=== PATIENT | male | born 1935 | race Caucasian/White ===

== ENCOUNTER → 2016-10-14 | Outpatient (CLI) | payer MEDICARE, BC | LOC: LAB.O 11:27 | PROVIDERS: ATTEND Family Medicine | DX: D50.9 Iron deficiency anemia, unspecified (principal); E53.8 Deficiency of other specified B group vitamins; I10 Essential (primary) hypertension; R97.20 Elevated prostate specific antigen [PSA] ==

== ENCOUNTER → 2016-11-24 | Outpatient (CLI) | payer MEDICARE, BC | END | disposition home or self-care (01) | LOC: GMAB 08:07 | PROVIDERS: ATTEND Family Medicine | DX: E53.8 Deficiency of other specified B group vitamins (principal); D50.9 Iron deficiency anemia, unspecified; R97.20 Elevated prostate specific antigen [PSA] ==

== ENCOUNTER → 2016-12-01 | Outpatient (CLI) | payer MEDICARE, BC ==
--- NOTE | 2016-12-01 10:32 | RAD ---
EXAM DESCRIPTION: Knee,Left Complete CLINICAL HISTORY: 81 years Male, KNEE PAIN COMPARISON: September 18, 2016 FINDINGS: 3 views of the left knee show no acute fracture or malalignment. Moderate to moderately advanced tricompartmental degenerative changes are noted including joint space narrowing and osteophyte formation, slightly worse in the patellofemoral compartment. There is no left knee joint effusion. Vascular calcifications are noted. IMPRESSION: Moderate to moderately advanced tricompartmental degenerative changes, worse in the patellofemoral compartment. Vascular calcifications. Electronically signed by: Krishan Shaikh MD 12/01/2016 10:32 AM CLAIMS TECHNICIAN
== END | disposition home or self-care (01) ==
LOC: RAD 09:13
PROVIDERS: ATTEND Orthopaedic Surgery
DX: M25.562 Pain in left knee (principal)

== ENCOUNTER 2016-12-02 06:15 | Day surgery (SDC) | payer MEDICARE, BC ==
--- NOTE | 2016-12-01 11:35 | HP ---
CHIEF COMPLAINT: Left knee pain. HISTORY OF PRESENT ILLNESS: Mr. Wolff is an 81-year-old male that we have seen in the past for left knee pain. He has had an injection before in the past and he has done pretty well. Unfortunately, he has had some mechanical symptoms, but those have not prevented him from doing his activities. Today, he has had the acute onset of severe pain without any new trauma. He has had no radiation of that pain and no neurologic symptoms. He has had pain that is requiring him to walk on crutches. He is having some popping and says it feels like something is floating around in there. PAST SURGICAL HISTORY: 1. Lumbar fusion. MEDICATIONS: None. ALLERGIES: MORPHINE. CODE STATUS: Full code. IMMUNIZATIONS: Up to date. SOCIAL HISTORY: The patient does not drink, smoke or use any illicit drugs. FAMILY HISTORY: None pertinent to today's complaint. REVIEW OF SYSTEMS: Negative except as indicated in the History of Present Illness. PHYSICAL EXAMINATION: VITAL SIGNS: Blood pressure 160/97. Pulse 101. Height 5'10. Weight 200. MENTAL STATUS: The patient is awake, alert, and is able to give a good history and participate in the physical. The patient is oriented to person, place and time. SKIN: Normal tone and turgor. MUSCULOSKELETAL: He is extremely tender diffusely about the knee and lacks about 10 degrees of extension today. He has intact sensation throughout. It is warm and well perfused. He maintains 5/5 strength. He has palpable crepitus throughout and he has no varus/valgus or anterior/posterior laxity. He has an obvious effusion today. IMAGING: X-rays show arthritis, but no acute bony abnormality. ASSESSMENT: 1. Knee pain with limitation of motion. PLAN: The plan at this point is for knee arthroscopy. He has had such an acute onset of pain and is starting to develop mechanical symptoms. I have talked to him about the fact that he may continue to have baseline pain consistent with his arthritis, but at the same time, given his current status, it certainly may help with this acute situation. We have discussed the risks, benefits, and alternatives to that and the patient has given informed consent. #[id number] [facility]
--- NOTE | 2016-12-01 11:38 | RAD ---
EXAM DESCRIPTION: Chest,2 Views CLINICAL HISTORY: 81 years Male, Pre-op COMPARISON: 07 March 2013 TECHNIQUE: PA/lateral] FINDINGS: There is no cardiac or pulmonary abnormality. The lungs are clear. There is no effusion. IMPRESSION: 1. Normal two-view chest. Electronically signed by: Edi Powers MD 12/01/2016 11:38 AM CONSTRUCTION TECHNOLOGY INSTRUCTOR
[~2016-12-02 06:15] MED LIST: LACTATED RINGERS 1,000 ML ONE; SODIUM CHL 0.9% 100ML MINI-BAG 100 ML IVPB ONE; ceFAZolin SODIUM 1 GM VIAL ONE; fentaNYL CITRATE INJ 50 MCG/ML AMP ONE
[2016-12-02] MEDS ORDERED: BUPIVACAINE 0.25% W/EPI 50 ML VIAL INJ ONE (06:43)
[2016-12-02] MEDS ORDERED: ceFAZolin SODIUM 1 GM VIAL ONE ×2 (06:44→07:46)
[2016-12-02] MEDS ORDERED: BUPIVACAINE 0.5% W/EPI 30 ML VIAL INJ ONE (07:28)
[2016-12-02 08:16] VITALS: TEMP 97.7
[2016-12-02] MEDS ORDERED: HYDROcodone 5MG/APAP 325MG 1 EA TAB ONE (08:41)
[2016-12-02 09:31] VITALS: BP 145/84; O2SAT 97
[2016-12-02] MEDS ORDERED: METOCLOPRAMIDE HCL INJ 10 MG/2 ML VIAL IV ONE (11:22)
[2016-12-02] MEDS ORDERED: PROPOFOL 200 MG/20 ML VIAL IV ONE (11:23)
--- NOTE | 2016-12-03 08:37 | OP ---
DATE OF PROCEDURE: 12/02/16 PREOPERATIVE DIAGNOSIS: 1. Knee pain on the left. POSTOPERATIVE DIAGNOSIS: 1. Advanced osteoarthritis. 2. Approximately 2 cm by 1 cm loose body in the lateral compartment. 3. Approximately 1 cm by 0.5 cm loose body in the lateral gutter. PROCEDURE: SURGEON: Chalino Marinelli MD. FITNESS ASSISTANT: Chris Rangel CST, SA-C. ANESTHESIA: General. COMPLICATIONS: None. INDICATION: Mr. Wolff has a long history of knee pain. He has had injections in the past. Unfortunately, he has been unable to get relief and then had acute onset of worsening pain. He presented to the clinic with mechanical symptoms. After discussing the risks, benefits and alternatives to operative therapy, the patient has given informed consent for the above procedure. PROCEDURE: The patient was brought to the Operating Room and placed in supine position. General anesthesia was induced and the patient's leg was sterilely prepped and draped. Following prepping and draping, standard anteromedial and anterolateral portals were established. Diagnostic arthroscopy was carried out with the following findings: 1. Degenerative fraying of the medial meniscus. 2. Advanced arthrosis of the medial compartment. 3. Normal anterior cruciate ligament. 4. Normal posterior cruciate ligament. 5. Approximately 2 by 1 cm loose body in the lateral compartment. 6. Advanced arthrosis of the lateral compartment. 7. Approximately 1 by 0.5 cm loose body in the lateral gutter. 8. Normal suprapatellar pouch. 9. Advanced arthrosis of the patellofemoral joint. 10. Normal medial gutter. Following diagnostic arthroscopy, an accessory superolateral portal was established and the loose body in the lateral gutter was removed. Following that, a grasper was used to remove the loose body in the lateral compartment. Once all the loose bodies were removed, the knee was thoroughly irrigated and care was taken to ensure no further objects remained in the knee. The wound was very thoroughly drained and the wounds were closed with Nylon suture. Sterile dressings were placed. The patient was awoken from anesthesia and taken to Recovery. POSTOPERATIVE INSTRUCTIONS: The patient will be partial weightbearing and will followup with us in two days. #[id number] [facility]
== END 2016-12-02 09:20 | disposition home or self-care (01) ==
LOC: AMB 06:15
PROVIDERS: ATTEND Orthopaedic Surgery
DX: M17.12 Unilateral primary osteoarthritis, left knee (principal); M23.42 Loose body in knee, left knee; Z88.8 Allergy status to other drugs, medicaments and biological substances
CPT/HCPCS: 01400; 29874; 36415; 71020; 80048; 81001; 85025; 87070; 88305; 88311; 93005; J0690; J2765; J3010; J3490; J7050; J7120

== ENCOUNTER 2016-12-28 01:57 | Inpatient (IN) | payer MEDICARE, BC ==
[2016-12-28] MEDS ORDERED: NITROGLYCERIN 0.4 MG 25 EA TAB SL ONE (02:13)
[2016-12-28] MEDS: SODIUM CHLORIDE 0.9% (FLUSH) 10 ML SYG IV PRN ×4 (02:27→21:33)
[2016-12-28] MEDS ORDERED: LIDOCAINE VIS-MYLANTA 30 ML UD PO ONE (02:29)
--- NOTE | 2016-12-28 03:03 | RAD ---
EXAM: Single view chest. INDICATION: Chest pain. COMPARISON: Chest x-ray: 12/01/2016. FINDINGS: Cardiac silhouette: At the upper limit of normal in size Madeline: Unremarkable. Lobar consolidation: None. Pleural effusion: None. Pneumothorax: None. Other: None. Bones: Unremarkable. Other: None. IMPRESSION: 1. No acute cardiopulmonary process. Electronically signed by: Mundo Mccall MD 12/28/2016 3:02 AM CDT
--- NOTE | 2016-12-28 03:07 | ED.PDOC ---
History of Present Illness - General Chief Complaint: Chest Pain/IL Stated Complaint: chest pain, nausea Time Seen by Provider: 12/28/16 02:13 Source: patient, RN notes reviewed, Vital Signs reviewed Exam Limitations: no limitations - History of Present Illness Initial Comments: Patient is an 81 y/o male who was brought in by his family complaining of epigastric pain. He has had this pain since 1600 yesterday. He has thrown up twice, but does not have any nausea. He denies any shortness of breath, chest pain, dizziness or diaphoresis. He has no cardiac history. Timing/Duration: other - Since 1599 yesterday afternoon Severity: mild, moderate Improving Factors: nothing Worsening Factors: nothing Associated Symptoms: cough, nausea/vomiting Allergies/Adverse Reactions: Allergies Doxycycline Allergy (Verified 12/28/16 02:35) Rash Morphine Allergy (Verified 12/28/16 02:35) Rash Home Medications: Ambulatory Orders Aspirin (Buffered) 325 mg [Bufferin 325 mg] 1 ea PO BEDTIME 06/15/16 Meloxicam 15 mg PO DAILY 06/15/16 amLODIPine BESYLATE [Norvasc] 10 mg PO DAILY 06/15/16 Review of Systems - Review of Systems Constitutional: States: no symptoms reported EENTM: States: no symptoms reported Respiratory: States: no symptoms reported Cardiology: States: no symptoms reported Gastrointestinal/Abdominal: States: abdominal pain, vomiting Genitourinary: States: no symptoms reported Musculoskeletal: States: no symptoms reported Skin: States: no symptoms reported Neurological: States: no symptoms reported Endocrine: States: no symptoms reported Hematologic/Lymphatic: States: no symptoms reported All other Systems: Reviewed and Negative Past Medical History (General) - Patient Medical History Hx Stroke: No Hx Asthma: No Hx of COPD: No Hx Cardiac Disorders: Yes Hx Congestive Heart Failure: No Hx Hypertension: Yes Hx Diabetes: No Hx Renal Disease: No - Hx kidney stones Hx Cancer: No Hx MRSA: No Surgical History: tonsillectomy, other - Vaccination History Hx Tetanus, Diphtheria Vaccination: Yes Hx Influenza Vaccination: Yes Hx Pneumococcal Vaccination: Yes - Social History Hx Tobacco Use: Yes Hx Alcohol Use: No Family Medical History - Family History Father Living Status: Cause of : lung CA Physical Exam - Physical Exam General Appearance: Alert, Comfortable, No apparent distress Ears, Nose, Throat: hearing grossly normal, normal ENT inspection Respiratory: lungs clear, normal breath sounds, no respiratory distress, no accessory muscle use Cardiovascular/Chest: normal peripheral pulses, regular rate, rhythm, no edema, no murmur Gastrointestinal/Abdominal: non tender, soft, no organomegaly, no pulsatile mass Extremity: normal inspection Neurologic: alert, normal mood/affect, oriented x 3 Progress - Results/Orders Results/Orders: 12/28/16 12/28/16 12/28/16 02:19 02:20 03:00 Temperature 98.7 F Pulse Rate Pulse Rate [ 86 88 left] Respiratory 18 Rate Blood Pressure 155/89 [left] O2 Sat by Pulse 98 95 Oximetry 12/28/16 03:06 Temperature Pulse Rate 80 Pulse Rate [ 85 left] Respiratory 18 Rate Blood Pressure 147/80 [left] O2 Sat by Pulse 96 Oximetry 12/28/16 02:13 IV Care:Saline Lock per Protoc QSHIFT Telemetry .ONCE Sodium Chloride 0.9% (Flush) [Saline Flush Syringe] 10 ml IV PRN PRN EKG Stat Pulse Ox Stat 12/28/16 02:14 Pulse Oximetry Assessment DAILY 12/28/16 03:20 Ondansetron Inj [Zofran Inj] 4 mg IV ONCE ONE Laboratory Results WBC 7.7 K/mm3 (4.8-10.8) 12/28/16 02:10 RBC 3.79 M/mm3 (4.70-6.10) L 12/28/16 02:10 Hgb 12.2 gm/dL (14.0-18.0) L 12/28/16 02:10 Hct 35.6 % (42.0-52.0) L 12/28/16 02:10 MCV 94.1 fl (80.0-94.0) H 12/28/16 02:10 MCH 32.1 pg (27.0-31.0) H 12/28/16 02:10 MCHC 34.3 g/dL (33.0-37.0) 12/28/16 02:10 RDW 15.0 % (11.5-14.5) H 12/28/16 02:10 Plt Count 139 K/mm3 (130-400) 12/28/16 02:10 MPV 8.6 fl (7.40-10.4) 12/28/16 02:10 Absolute Neuts (auto) 5.10 K/uL (1.8-6.8) 12/28/16 02:10 Absolute Lymphs (auto) 1.60 K/uL (1.0-3.4) 12/28/16 02:10 Absolute Monos (auto) 1.00 K/uL (0.2-0.8) H 12/28/16 02:10 Absolute Eos (auto) 0.10 K/uL (0.0-0.4) 12/28/16 02:10 Absolute Basos (auto) 0.00 K/uL (0.0-0.1) 12/28/16 02:10 Neutrophils % 65.2 % (42.0-78.0) 12/28/16 02:10 Lymphocytes % 20.4 % (20.0-50.0) 12/28/16 02:10 Monocytes % 13.3 % (2.0-9.0) H 12/28/16 02:10 Eosinophils % 0.7 % (1.0-5.0) L 12/28/16 02:10 Basophils % 0.4 % (0.0-2.0) 12/28/16 02:10 PT 12.5 SECONDS (9.4-12.5) 12/28/16 02:10 INR 1.110 12/28/16 02:10 PTT (SP) 29.9 SECONDS (25.1-36.5) 12/28/16 02:10 D-Dimer, Quantitative 399 ng/mL (0-230) H* 12/28/16 02:10 Sodium 135 mmol/L (135-145) 12/28/16 02:10 Potassium 3.6 mmol/L (3.6-5.0) 12/28/16 02:10 Chloride 103 mmol/L (101-111) 12/28/16 02:10 Carbon Dioxide 24 mmol/L (21-31) 12/28/16 02:10 Anion Gap 11.6 (12-18) L 12/28/16 02:10 BUN 12 mg/dL (7-18) 12/28/16 02:10 Creatinine 0.76 mg/dL (0.6-1.3) 12/28/16 02:10 BUN/Creatinine Ratio 15.8 (10-20) 12/28/16 02:10 Random Glucose 144 mg/dL (70-105) H 12/28/16 02:10 Serum Osmolality 272.4 mOsm/L (275-295) L 12/28/16 02:10 Calcium 9.0 mg/dL (8.4-10.2) 12/28/16 02:10 Magnesium 2.0 mg/dL (1.8-2.5) 12/28/16 02:10 Total Bilirubin 1.6 mg/dL (0.2-1.0) H 12/28/16 02:10 Direct Bilirubin 0.2 mg/dL (0-0.2) 12/28/16 02:10 Indirect Bilirubin 1.4 mg/dL (0.2-0.8) H 12/28/16 02:10 AST 20 IU/L (10-42) 12/28/16 02:10 ALT 11 IU/L (10-60) 12/28/16 02:10 Alkaline Phosphatase 73 IU/L (42-121) 12/28/16 02:10 Creatine Kinase 89 IU/L (38-174) 12/28/16 02:10 CK-MB (CK-2) 1.6 ng/mL (0.0-4.4) 12/28/16 02:10 CK-MB (CK-2) % Not Reportable 12/28/16 02:10 Troponin I < 0.02 ng/mL (0.01-0.05) 12/28/16 02:10 B-Natriuretic Peptide 59.0 pg/ml (0-100) 12/28/16 02:10 Serum Total Protein 8.3 gm/dL (6.4-8.2) H 12/28/16 02:10 Albumin 4.1 g/dl (3.2-5.5) 12/28/16 02:10 - EKG/XRAY/CT EKG: Sinus - 87 bpm, no ST T wave changes, Changed from - 12/02/2016 - PAC on this EKG Comments: PAC, NML axis, NML intervals - Sinus rhythm with PAC XRAY: chest Xray Comments: No acute process. Departure - Departure Clinical Impression: Epigastric abdominal pain Vomiting Qualifiers: Vomiting type: unspecified Vomiting Intractability: unspecified Nausea presence : without nausea Qualifier Code: (R11.11) Vomiting without nausea Time of Disposition: 03:26 Disposition: Admit Patient Home Medications: Ambulatory Orders Aspirin (Buffered) 325 mg [Bufferin 325 mg] 1 ea PO BEDTIME 06/15/16 Meloxicam 15 mg PO DAILY 06/15/16 amLODIPine BESYLATE [Norvasc] 10 mg PO DAILY 06/15/16 Decision To Admit - Decistion To Admit Decision to Admit Reason: Medical Nature Decision to Admit Date: 12/28/16 Decision to Admit Time: 15:00
[2016-12-28] MEDS ORDERED: ONDANSETRON INJ 4 MG/2 ML VIAL IV ONE ×2 (03:20→05:43)
--- NOTE | 2016-12-28 03:26 | HP ---
SUPERVISING PHYSICIAN: RAHUL BEJARANO MD CHIEF COMPLAINT: Nausea, epigastric pain. HISTORY OF PRESENT ILLNESS: Mr. Wolff is an 81 year-old male patient who presented to the Emergency Department on the early childhood specialist of admission, 12/28/16 complaining of epigastric pain. He noted the pain initially started around 4 o'clock the previous day and he had thrown up twice but denies he had any significant nausea. He denied any chest pain, dizziness or diaphoresis and has no significant cardiac history. Laboratory studies showed a normal white count of 7.7 with differential showing to be within normal limits. His chemistries showed normal electrolytes with potassium of 3.6 but liver functions showed an elevated bilirubin of 1.6 with elevated indirect bilirubin of 1.4. Cardiac enzymes showed to be less than 0.02 initially and amylase and lipase were within normal limits. He was given Zofran and fluids in the Emergency Department with minimal improvement. CT of the abdomen was not obtainable at time of admission due to the fact that the weather had disrupted radiographic service for the CT scanner. Given the patient was having some epigastric pain and there was concern for possible cardiac origin as well as unknown whether or not the bilirubin was related to possible cholelithiasis and cholecystitis. The patient is going to be placed in observation to rule out acute myocardial event. Once CT scanner is available, we will further pursue CT of the abdomen to further rule out any gallbladder pathology. He was admitted in stable condition. PAST MEDICAL HISTORY: 1. History of renal stones. 2. Hypertension. PAST SURGICAL HISTORY: 1. Lower back surgery. 2. Tonsillectomy. 3. Renal lithotripsy. 4. Recent left knee arthroscopy by Dr. Marinelli. CURRENT MEDICATIONS: 1. Amlodipine 10 mg daily. 2. Miralax 17 grams daily. 3. Meloxicam 15 mg daily. 4. Buffered aspirin 325 mg 1 at bedtime. ALLERGIES: DOXYCYCLINE AND MORPHINE. FAMILY HISTORY: Father from lung cancer. SOCIAL HISTORY: The patient is retired, lives in [place], is . He has a remote history of smoking but quit in 1966 and he denies any alcohol or illicit drug use. LABORATORY: CBC on admission showed a white count of 7.7, hemoglobin 12.2, hematocrit 35.6, platelet count 139,000, differential showed to be without a lift shift. Coagulation studies showed normal PT/PTT, only slightly elevated D dimer of 399. Chemistries initially showed normal electrolytes with potassium of 3.6, BUN 12, creatinine 0.76. Glucose initially was 144. Magnesium and calcium were both normal. Liver functions showed elevated total bilirubin of 1.6 with elevated indirect bilirubin of 1.4. His amylase and lipose were both within normal limits. Initial cardiac enzymes on admission showed normal CPK of 89 with troponin less than 0.02. Urinalysis showed only a trace of blood on dipstick, otherwise within normal limits,. Initial EKG in the Emergency Department showed normal sinus rhythm without ST changes noted. RADIOLOGY: Initial radiographic studies in the Emergency Department consisted only of chest x-ray and per radiology interpretation showed no acute cardiopulmonary processes. Once the patient was admitted to the medical/ surgical floor. CT of the abdomen is pending. Abdomen series after admission per radiology interpretation showed just the presence of a few punctate radiographic densities within the outline of the left kidney. The right kidney, otherwise there was no mention of small or large bowel gas obstruction ileus or wall thickening. REVIEW OF SYSTEMS: CONSTITUTIONAL: Denies any fevers, fatigue, or unintentional weight loss. HEENT: Denies nasal congestion, sore throat, ear pain. RESPIRATORY: Denies shortness of breath, cough or wheezing. CARDIOVASCULAR: As per history of present illness, positive for epigastric pain. Denies any harley chest pains, syncopal episodes, palpitations. GASTROINTESTINAL: As noted in history of present illness, positive for some abdominal pain, mainly epigastric with some vomiting. GENITOURINARY: Denies dysuria, increased frequency or hematuria NEUROLOGIC: Denies syncopal episodes, vision changes, or neurologic deficits. PHYSICAL EXAMINATION: VITAL SIGNS: Temperature 98.4. Pulse 83. Blood pressure 150/90. Respirations 18. O2 saturation 97% on room air. Admission weight 87.9 kg. GENERAL: The patient appears to be in some mild distress secondary to pain and nausea, vomiting with some active emesis. He is alert and oriented times three. HEENT: Tympanic membranes clear bilaterally. Oropharynx is pink. Mucous membranes slightly dry. There are no lesions. NECK: No jugular venous distention noted. CHEST: Lungs clear to auscultation bilaterally without any rhonchi, wheezes, or rales. CARDIOVASCULAR: Regular rate and rhythm without any appreciable murmurs, gallops, or rubs. ABDOMEN: Positive bowel sounds. No rebound tenderness. There is some tenderness on deep palpation to the right upper quadrant. Otherwise, abdomen is without any significant tenderness. There is no notable tenderness overlying the epigastric region. EXTREMITIES: There is no cyanosis, clubbing or edema. NEUROLOGIC: The patient is alert and oriented times three. LABORATORY: White count on admission was 7.7, hemoglobin 12.2, hematocrit 35.6 , platelet count 139,000, differential without left shift. Coagulation studies showed normal PT, PT-T with INR slightly elevated at 399. Chemistries showed normal electrolytes with potassium 3.6, BUN 12, creatinine 0.6, glucose 144. Total bilirubin slightly elevated at 1.6 with total indirect bilirubin 1.4. All other liver functions within normal limits. Troponin on admission initially was less than 0.02 with normal CPK at 89. Amylase and lipase were both normal. Urinalysis was within normal limits except for trace of blood on dipstick. H. pylori is pending. RADIOLOGY: Initial chest x-ray in the Emergency Department per radiology interpretation showed no acute cardiopulmonary process. On admission, abdominal x-ray and abdomen and pelvis with contrast CT were pending. ASSESSMENT: 1. Epigastric pain, acute onset, currently unknown etiology, possibly related to gallstones versus cholelithiasis with patient having an elevated total bilirubin. with CT of the abdomen and pelvis with contrast pending at time of admission. 2. Nausea and vomiting secondary to possible cholelithiasis, cholecystitis versus chest pain most likely of cardiac origin. 3. History of hypertension. 4. History of renal stones. PLAN: The patient will be placed in observation this morning to continue with cardiac enzymes x 2 every 6 hours apart with repeated EKG to further rule out any acute myocardial event. Once CT scanner is available, he will have a CT of the abdomen with contrast with a concern that the patient may have a cholelithiasis/cholecystitis. Given the patient's initial presentation and nausea and vomiting, we will await findings of the CT results and plan to consult Dr. Fontenot according to those results. He will be started on pain medication initially with Toradol and since he is allergic morphine, utilize Dilaudid as well as Zofran and Phenergan for pain and nausea control. We will repeat his cardiac enzymes at [address] patient on telemetry for close cardiac monitoring and start him on some IV fluids with D5 and half normal saline with 20 of potassium at 100 an hour. Will anticipate length of stay to be 1 to 2 days pending findings of the abdominal CT scan and need for surgical consultation. Until then, we will continue to monitor the patient closely and treat appropriately. #[id number] [facility]
[2016-12-28] MEDS ORDERED: METOCLOPRAMIDE HCL INJ 10 MG/2 ML VIAL IV ONE (04:23)
[2016-12-28] MEDS ORDERED: PANTOPRAZOLE SODIUM IV 40 MG VIAL IV SCH (04:30)
[2016-12-28] MEDS ORDERED: ONDANSETRON INJ 4 MG/2 ML VIAL IV PRN (04:31)
[2016-12-28] MEDS ORDERED: PROMETHAZINE HCL IVPB ONE (04:42)
[2016-12-28] MEDS ORDERED: SODIUM CHLORIDE 0.9% IVPB ONE (04:42)
[2016-12-28] MEDS: KCL 20MEQ/0.45% NS 1,000 ML IVS PRN ×2 (04:57→17:32)
[2016-12-28] MEDS ORDERED: IV SET AND CAP CHANGE INJ INJ SCH (05:00)
[2016-12-28] MEDS ORDERED: diphenhydrAMINE HCL 50 MG/ML VIAL IV ONE (05:44)
[2016-12-28] MEDS ORDERED: KETOROLAC TROMETHAMINE INJ 30 MG/ML VIAL IV ONE (05:48)
--- NOTE | 2016-12-28 08:02 | RAD ---
PROCEDURE: Abdomen Flat Upright Clinical History: Epigastric pain N/V Indication: Same as above Comparison: 06/15/2016 Technique: 3.0 views of the abdomen and pelvis were done. Findings: There is no gross evidence of free air in the abdomen or the pelvis . The small and large bowel gas pattern does not show any evidence of obstruction, ileus or bowel wall thickening. There is presence of few punctate radiopaque densities in the outline of the left kidney and right kidney and may represent underlying bilateral renal calculi The visualized lung bases are unremarkable . There is no significant constipation. Impression: There is presence of few punctate radiopaque densities in the outline of the left kidney and right kidney and may represent underlying bilateral renal calculi Location of Interpretation: [id number] Electronically signed by: Bryan Adams MD 12/28/2016 8:02 AM CDT
[2016-12-28] MEDS ORDERED: PROMETHAZINE SUPP 25 MG SUP PR ONE (08:13)
[2016-12-28] MEDS: CALCIUM CARBONATE (ANTACID) 500 MG CHEWABLE TAB PO PRN ×2 (09:03→15:53)
[2016-12-28] MEDS: SODIUM CHLORIDE 0.9% (FLUSH) 10 ML SYG IV SCH ×2 (09:03→21:35)
--- NOTE | 2016-12-28 10:14 | CT ---
PROCEDURE: Abdomen/Pelvis w/Contrast HISTORY: Epigastric pain elevated TBIL Indication: Same as above Comparison: 06/26/2016 . Technique: CT of the abdomen and pelvis was done with intravenous contrast. Images were obtained from the lung base to the level of the pubic symphysis in axial plane, followed by orthogonal sagittal and coronal reconstruction. Oral contrast was not given for the study. The patient was injected with contrast intravenously, without any documented immediate adverse reactions. This exam was performed according to our departmental dose-optimization program, which includes automated exposure control, adjustment of the mA and/or KV according to the patient's size and/or use of iterative reconstruction technique. FINDINGS: Images through the lung bases do not show any focal infiltrates or pleural effusions. There is presence of a small hiatal hernia. The gallbladder is moderately fluid distended with pericholecystic fat plane stranding suspicious for acute cholecystitis. There is presence of multiple tiny intraluminal gallstones. The liver, pancreas, spleen and the bilateral adrenal glands appear unremarkable. The bilateral kidneys enhance with contrast in a normal fashion. The patient has known tiny nonobstructive bilateral renal calculi, which are currently obscured by presence of radiographic contrast in the kidneys The urinary bladder is unremarkable. The prostate is moderately enlarged . The bilateral ureters and the bilateral periureteral soft tissues and fat planes are unremarkable. The small bowel appears unremarkable, without any evidence of small bowel obstruction or bowel wall thickening. There is no CT evidence of acute appendicitis, pericecal inflammatory change or ileocecal mesenteric adenitis. The ileocecal junction appears unremarkable. There is no CT evidence of acute colonic diverticulitis or colitis or large bowel obstruction. There is large bowel diverticulosis The splenic and portal veins are of normal caliber, without any filling defects. There is no pathological lymphadenopathy in the retroperitoneum or in the pelvic region. There is no evidence of free fluid or free air in the abdomen or the pelvic region. There is no clinically significant abdominal aortic aneurysm. There is a small fat-containing periumbilical ventral hernia defect The visualized lumbar spine again shows multilevel degenerative change, most pronounced at L4/L5 level The paravertebral soft tissues are unremarkable. The remainder of the pelvic structures are unremarkable. IMPRESSION: The gallbladder is moderately fluid distended with pericholecystic fat plane stranding suspicious for acute cholecystitis. There is presence of multiple tiny intraluminal gallstones.. The patient has known tiny nonobstructive bilateral renal calculi, which are currently obscured by presence of radiographic contrast in the kidneys. Large bowel diverticulosis without CT evidence of acute diverticulitis. Enlarged prostate Location of Interpretation: Teleradiology Electronically signed by: Bryan Adams MD 12/28/2016 10:14 AM CDT
[2016-12-28] MEDS ORDERED: CHLORPROMAZINE 50 MG PR PRN (11:28)
[2016-12-28] MEDS ORDERED: HYDROmorphone HCL INJ 2 MG/ML VIAL ONE (11:49)
[2016-12-28] MEDS: levoFLOXacin 750MG IV 750 MG in PREMIX BAG 1 BAG IVPB SCH (11:55)
[2016-12-28] MEDS: HYDROmorphone HCL INJ 2 MG/ML VIAL IV PRN ×4 (11:56→21:33)
--- NOTE | 2016-12-28 13:59 | CONS ---
DATE OF PROCEDURE: 12/28/16 REFERRING PHYSICIAN: Hospitalist group HISTORY OF PRESENT ILLNESS: The patient is an 81 year-old male who was admitted through the Emergency Room with what was said to be chest pain after eating a tuna salad. The workup was negative for cardiovascular process and a CT scan was obtained which shows cholelithiasis with inflammatory changes. The patient had thrown up twice prior to admission but did not complain of nausea at the time. He specifically denies previous episodes of like illness or problems with fatty food. He also denies a history of hepatitis or jaundice. He denies shortness of breath, chest pain and diaphoresis. PAST MEDICAL HISTORY: 1. Kidney stones. 2. Hypertension. PAST SURGICAL HISTORY: 1. Tonsillectomy as a child. 2. Knee scope recently. CURRENT MEDICATIONS: 1. Aspirin 325 mg daily which is given for heart health. 2. Amlodipine 10 mg daily. 3. Meloxicam 15 mg daily. ALLERGIES: DOXYCYCLINE AND MORPHINE. FAMILY HISTORY: Significant for lung cancer in his father who was likely a smoker. SOCIAL HISTORY: The patient is . Lives at home with his . He quit tobacco 40 plus years ago and used it only for a short time. He never used alcohol. 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 REVIEW OF SYSTEMS: Noncontributory, except as in the History of Present Illness and the past medical history. PHYSICAL EXAMINATION: VITAL SIGNS: Afebrile, respiratory rate 20, blood pressure is slightly elevated at 161/83, pulse 90. GENERAL: Awake, alert and in significant distress. HEENT: Sclera are nonicteric. Mucous membranes are moist. NECK: Without adenopathy. CHEST: Equal breath sounds bilaterally. HEART: Regular rate and rhythm. ABDOMEN: Soft, tender in the right upper quadrant without mass or guarding. RECTAL: Examination is deferred. EXTREMITIES: Without clubbing, cyanosis or edema. LABORATORY: White blood cell count of 7.7, hemoglobin 12.2, platelet count 139, 000, 65% neutrophils. Total bilirubin is 1.6. AST, ALT and alkaline phosphatase are within normal limits. CK, CK-MB and troponin are all within normal limits. Amylase was within normal limits. Lipase was mildly elevated at 66. He does have a positive H. pylori IgG. CT scan of the abdomen revealed inflammatory process around the gallbladder with small stones, normal duct. There is diverticulosis without signs of diverticulitis or appendicitis. There is a small periumbilical hernia. IMPRESSION: 1. Abdominal pain and nausea. 2. Elevated bilirubin. 3. Cholelithiasis. 4. Likely biliary colic with cholelithiasis or acute cholecystitis with cholelithiasis. 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 5. Known kidney stones. PLAN: The risks, benefits, and alternatives of laparoscopic cholecystectomy were discussed with the patient in the presence of his son and daughter. All questions were answered. The plan will be to begin antibiotics. Use significant analgesia to make him comfortable and likely proceed with cholecystectomy in the morning unless the lipase becomes more elevated or something else intervenes. #[id number] [facility]
[2016-12-28] MEDS ORDERED: PANTOPRAZOLE SODIUM IV 40 MG VIAL ONE (15:32)
[2016-12-28] MEDS ORDERED: ALUM & MAG HYDROX-SIMETHICONE 30 ML UD ONE (15:49)
[2016-12-28] MEDS ORDERED: ALUM & MAG HYDROX-SIMETHICONE 30 ML UD PO PRN (15:49)
[2016-12-28] MEDS: PANTOPRAZOLE SODIUM IV 40 MG VIAL IV SCH (18:12)
[2016-12-29] MEDS: HYDROmorphone HCL INJ 2 MG/ML VIAL IV PRN ×3 (00:09→05:49)
[2016-12-29] MEDS: SODIUM CHLORIDE 0.9% (FLUSH) 10 ML SYG IV PRN ×4 (00:09→06:31)
[2016-12-29] MEDS: KCL 20MEQ/0.45% NS 1,000 ML IVS PRN (03:34)
[2016-12-29] MEDS ORDERED: PANTOPRAZOLE SODIUM IV 40 MG VIAL IV SCH (06:30)
[2016-12-29] MEDS: PANTOPRAZOLE SODIUM IV 40 MG VIAL IV SCH (06:32)
[2016-12-29] MEDS ORDERED: LIDOCAINE 2 % GEL 5 ML TUBE TOP ONE (09:10)
[2016-12-29] MEDS ORDERED: LACTATED RINGERS 1,000 ML ONE ×2 (09:10→13:30)
[2016-12-29] MEDS ORDERED: fentaNYL CITRATE INJ 50 MCG/ML AMP ONE (09:10)
[2016-12-29] MEDS ORDERED: ROCURONIUM BROMIDE 10 MG/ML VIAL ONE (09:10)
[2016-12-29] MEDS ORDERED: BUPIVACAINE 0.25% W/EPI 50 ML VIAL INJ ONE (09:19)
[2016-12-29] MEDS ORDERED: HEPARIN SODIUM (PORCINE) 10,000 UNITS/ML VIAL ONE (09:20)
[2016-12-29] MEDS ORDERED: metroNIDAZOLE IV PREMIX 500MG 100 ML IVPB ONE (09:42)
[2016-12-29] MEDS: levoFLOXacin 750MG IV 750 MG in PREMIX BAG 1 BAG IVPB SCH (11:41)
[2016-12-29] MEDS ORDERED: ONDANSETRON INJ 4 MG/2 ML VIAL IV PRN (13:14)
[2016-12-29] MEDS ORDERED: SODIUM CHLORIDE 0.9% 1000ML 1,000 ML IVS PRN (13:14)
[2016-12-29] MEDS: fentaNYL CITRATE INJ 50 MCG/ML AMP ONE ×2 (13:43→13:49)
[2016-12-29] MEDS ORDERED: ONDANSETRON INJ 4 MG/2 ML VIAL ONE (13:56)
--- NOTE | 2016-12-29 14:05 | OP ---
DATE OF PROCEDURE: 12/29/16 PREOPERATIVE DIAGNOSIS: 1. Acute cholecystitis. 2. Cholelithiasis. POSTOPERATIVE DIAGNOSIS: 1. Acute gangrenous cholecystitis. 2. Cholelithiasis. PROCEDURE: 1. Laparoscopic cholecystectomy. SURGEON: Wilton Fontenot MD. RUG DRYING MACHINE OPERATOR: None. ANESTHESIA: Local infiltration of 0.25% Marcaine with epinephrine and general endotracheal anesthesia. INDICATION: The patient is an 81-year-old male who was admitted to the Emergency Room after eating tuna salad Thursday. The patient had thrown up several times and had significant right upper quadrant pain at the time of admission. He had a mildly elevated bilirubin of 1.6, normal white count this morning. His white count was up to 25,000 and bilirubin was up to 2. He actually felt better this morning. The patient was brought to the Surgical Suite today for cholecystectomy after the risks, benefits and alternatives to the procedure were discussed and accepted in the presence of his daughter and son. FINDINGS: There were dense adhesions to the gallbladder which was gangrenous, mainly in the body of the gallbladder. When we got to the neck of the gallbladder, there were no significant adhesions. Tissues were quite friable. Cholangiography was attempted, but the tissue would not hold the clip with the catheter and it continued to leak so that further attempts were not made. Cystic artery times 2, an artery in the gallbladder bed of the liver and cystic artery both identified and clipped. DESCRIPTION OF PROCEDURE: After adequate general endotracheal anesthesia was obtained, the patient was prepped and draped in the usual sterile manner. Surgical time-out was taken. At this point, a vertical incision was made above the umbilicus, first with local anesthesia and then sharp knife. Dissection was carried down through the skin to the midline fascia. Traction sutures were placed on either side of the midline. A small incision was made in the midline fascia and the peritoneum was opened bluntly. Art trocar was introduced under direct vision into the abdominal cavity and fixed in place with the 20 mL balloon. CO2 was then insufflated until a pressure of 12 mmHg was reached and the abdomen was tympanitic in all four quadrants. When this was done, the laparoscope was introduced. The abdomen was inspected with the previously noted findings. The patient was then placed in reverse Trendelenburg position, turned to the left side. The upper abdominal ports were placed under direct vision. At this point, tedious blunt dissection was begun at the body of the gallbladder at the edge of the liver and with significant oozing, this was all eventually dissected down. When this was done, the gallbladder was elevated. The neck of the gallbladder was retracted laterally. The triangle of Calot was then explored with significant difficulty due to the tissues. There was some loss of bile from the gallbladder with a small tear in the very proximal neck of the gallbladder. Eventually, the cystic artery was identified. It was cut partially, identified as vascular arterial bleeding and it was clipped twice proximally and divided. Likewise, the cystic duct was identified. A small incision was made after it was clipped proximally. Attempt to pass a cystic duct catheter was unsuccessful, so a single dark stone was milked from the cystic duct. Again, attempt was made to pass the catheter. However, there was no flow when it was clipped, so this was discontinued. There was leakage noted when the films were taken. At this point, we abandoned attempts to performed a cystic duct cholangiogram. The cystic duct was dissected free more distally and clipped three times and divided. At this point, the gallbladder was dissected free from the gallbladder bed of the liver using blunt dissection and electrocautery with significant difficulty due to the tissues. Another arterial bleeder was identified in the bed of the gallbladder and this was clipped and controlled. Eventually, the gallbladder was dissected free, placed in an EndoCatch bag and removed along with some clots from the supraumbilical port site. When this was done and this was a significant length of time, then we spent a long time aspirating clot, irrigating the wound, the subhepatic space and subphrenic space. There was no active bleeding identified. The delmy hepatis was inspected and no active bleeding or bile leak was identified. At this point, a RAMONA drain was placed in the gallbladder bed of the liver and then the area of the delmy hepatis, brought up through the lateral port site, sutured in place with 3-0 Nylon ligature. Understand this was a tedious procedure, more than two hours. At this point, the upper abdominal ports were removed under direct vision. The supraumbilical port was removed. The supraumbilical port site fascia was approximated with a single [id number] suture of 0 Vicryl. RAMONA drain was placed to closed suction grenade drainage and milked for clots. Subcutaneous tissue was irrigated with saline. Skin edges were approximated with skin stapler. Sterile dressings were applied. The patient was awakened and taken to the Recovery Room in stable condition. Estimated blood loss was 1000 mL. All sponge, needle and instrument counts were correct. #[id number] [facility]
[2016-12-29] MEDS ORDERED: LIDOCAINE 1% 10 ML VIAL INJ ONE (15:00)
[2016-12-29] MEDS ORDERED: PROPOFOL 200 MG/20 ML VIAL IV ONE (15:00)
[2016-12-29] MEDS ORDERED: NEOSTIGMINE METHYLSULFATE 1 MG/ML ML IV ONE (15:00)
[2016-12-29] MEDS ORDERED: ePHEDrine SULF 50 MG/ML IV ONE (15:00)
[2016-12-29] MEDS ORDERED: SODIUM CHLORIDE 0.9% 50 ML VIAL INJ ONE (15:00)
[2016-12-29] MEDS ORDERED: ATROPINE SULFATE 0.4 MG/ML 1ML VIAL IV ONE (15:00)
[2016-12-29] MEDS ORDERED: METOCLOPRAMIDE HCL INJ 10 MG/2 ML VIAL IV ONE (15:00)
[2016-12-29] MEDS ORDERED: PHENYLEPHRINE INJ 1ML 10 MG/ML VIAL IV ONE (15:00)
[2016-12-29] MEDS ORDERED: DOPamine PREMIX 250 ML IV ONE (15:07)
[2016-12-29] MEDS ORDERED: SODIUM CHLORIDE 0.9% 250ML 250 ML ONE (15:34)
[2016-12-29] MEDS ORDERED: KETAMINE HCL 100 MG/ML VIAL ONE (16:07)
[2016-12-29] MEDS ORDERED: NOREPINEPHRINE BITARTRATE 4 MG/4 ML VIAL IVPB ONE (16:34)
[2016-12-29] MEDS ORDERED: DEXTROSE 5% 250ML 250 ML IVPB ONE (16:35)
[2016-12-29] MEDS ORDERED: metroNIDAZOLE IV PREMIX 500MG 500 MG in PREMIX BAG 1 BAG IVPB SCH (18:00)
[2016-12-30 10:08] VITALS: TEMP 96.9
[2016-12-30 10:10] VITALS: BP 90/46; O2SAT 96
--- NOTE | 2016-12-30 10:25 | DS ---
SUPERVISING PHYSICIAN: Alfred Trujillo MD DISCHARGE DIAGNOSIS: 1. Acute gangrenous cholecystitis with sepsis and concerns for early DIC. 2. Cholelithiasis. 3. Severe leukocytosis, likely secondary to underlying septic process secondary to #1 with peripheral smears sent to Pathology for review and pending at time of discharge. HISTORY OF PRESENT ILLNESS: Mr. Wolff is an 81-year-old male patient who presented to the Emergency Department on the early childhood education instructor of admission, 12/28/16, complaining of epigastric pain. He noted the pain initially started around 4 o'clock the previous day and he had thrown up twice, but denies he had any significant nausea. He denied any chest pain, dizziness or diaphoresis and has no significant cardiac history. Laboratory studies showed on admission a white count of 7.7 with differential showing to be within normal limits. His chemistries showed normal electrolytes with potassium of 3.6 , but liver functions showed an elevated bilirubin of 1.6 with elevated indirect bilirubin of 1.4. Cardiac enzymes showed to be less than 0.02 initially on admission and amylase and lipase were within normal limits. He was given Zofran and fluids in the Emergency Department with minimal improvement. CT of the abdomen was not obtainable at time of admission due to the fact that the weather had disrupted radiographic service for the CT scanner. Given the patient was having some epigastric pain and there was concern for possible cardiac origin as well as unknown whether or not the bilirubin was related to possible cholelithiasis and cholecystitis, he was placed in initially in observation to rule out acute myocardial event. He was admitted awaiting CT scan availability. At time of admission, he was in stable condition. LABORATORY: Preoperative laboratory studies showed initial white count 7.7, hemoglobin 12.2, hematocrit 35.6, platelet count 139,000, differential without left shift. On the morning of surgery, his white count had spiked up to 25.9 with hemoglobin and hematocrit remaining stable. Platelet count remained stable at 139,000. Postoperatively, at 1330, his initial white count was 43.4, hemoglobin 9.4, hematocrit 29.2, platelet count 139,000. Just prior to discharge for transfer to [facility], CBC was repeated showing white count 36.6 with hemoglobin 9.0, hematocrit 27.4, platelet count decreased slightly to 112,000. Differential did show multiple immature cells with myelocytes and promyelocytes. Pathology lab review was pending. Coagulation studies initially preoperatively showed PT 12.5 with INR 1.1 with PT-T 29.9. He did have a slightly elevated D-dimer of 399. After surgery, PT was 19.9, INR 1.7, PT-T 31.1. Fibrinogen was elevated at 446 and fibrinogen degradation products were less than 10. Repeat PT prior to discharge/transfer showed PT 17.9, PT-T 29.8. Chemistries initially on admission showed normal electrolytes with potassium 3.6, BUN 12, creatinine 0.76, glucose 144. Bilirubin initially was elevated at 1.6 with indirect 1.4. Troponin times three were all less than 0.02. CPK as normal. The morning of surgery, repeat chemistries showed sodium 134, potassium 4.3, BUN 16, creatinine 1.12, calcium 8.8. Total bilirubin showed elevation of 2.0. Liver functions remained within normal limits as well as lipase was 24. Postoperatively, chemistries showed sodium 130, potassium 5.0 , BUN 23, creatinine 1.73, calcium 8.8. Urinalysis on admission showed just a trace of intact blood, otherwise was within normal limits. SEROLOGY: He does a positive H. pylori IGG antibody. MICROBIOLOGY: No specimens submitted. PROCEDURES: Laparoscopic cholecystectomy performed by Dr. Fontenot. Please refer to Dr. Fontenot's operative note and consultation for further details. BLOOD BANK: He had 5 units of fresh frozen plasma and 4 units of packed red blood cells. He was A- with a negative antibody screen. RADIOLOGY: Initial chest x-ray in the Emergency Department per radiology interpretation showed no acute cardiopulmonary process. This was followed up after admission to the Medical/Surgical Floor with an abdominopelvic CT with contrast and per radiology interpretation, there was noted the gallbladder was moderately fluid distended with pericholecystic fat plane stranding suspicious for acute cholecystitis with multiple tiny intraluminal gallstones. The liver, pancreas, spleen and bilateral adrenal glands were unremarkable in appearance. Please refer to that report for full details. No other radiographic studies were completed. HOSPITAL COURSE: Mr. Wolff was admitted as noted in history of present illness for nausea and after investigation was found to have acute cholecystitis. Consultation was secured with Dr. Fontenot who then took the patient to surgery the morning after admission on 04/03/17. Refer to his notes for operative details. Prior to going to the Operating Room, the patient was able to be stabilized in regards to his nausea with Thorazine, Zofran and pain medication with Dilaudid. The patient did well prior to surgery. He was made NPO and taken to surgery. Postoperatively, the patient had a decline in his state. He became quite hypotensive with an elevated white count and concerns for DIC and early sepsis with findings during surgery that the patient had a gangrenous gallbladder. The patient remained afebrile and his vital signs showed initially in the Post Anesthesia Care Unit that he was hypertensive. Please refer to Post Anesthesia Care Unit notes for full details of vital signs. His blood pressure was supported with fluids to include packed red blood cells and fresh frozen plasma with concern for the patient developing DIC given his high white count and change in his coagulation studies and noted difficulty obtaining hemostasis after surgery. He was also started initially on dopamine drip which did stabilize his blood pressure and arrangements were secured to transfer the patient to [facility] for continued higher level of care in Intensive Care Unit that is not available at [facility]. [facility] was notified for transfer and once the patient was stabilized with additional pressors to include Levophed, the patient was intubated to protect his airway during transport without any difficulty and was secured and packaged for transfer. At time of discharge, the patient was stable with blood pressure of 130/68, O2 saturation 100%, and O2 end-tidal of 39 with heart rate 101. The patient was then transferred via air ambulance to [facility]. PLAN: The patient was transferred postoperatively secondary to complications as noted above to [facility] for higher level of care to include Intensive Care Unit with concerns for sepsis complicated by DIC requiring multiple pressors to support blood pressure and need for multiple transfusions. He was transported by air ambulance through [facility] from [place] to [facility]. At time of transfer, he was in critical condition, but stable with blood pressure as noted above and currently at time of transfer was on dopamine and Levophed drip with multiple units of packed red blood cells and fresh frozen plasma infusion at time of transfer. #[id number] [facility]
== END 2016-12-29 17:20 | disposition short-term general hospital (02) | DRG 853 ==
LOC: ER 01:57 → MS 03:25 → OBSVTOIN 13:44
PROVIDERS: ADMIT Nurse Practitioner Family; ATTEND Nurse Practitioner Family
PROC: BW21YZZ Computerized Tomography (CT Scan) of Abdomen and Pelvis using Other Contrast (ICD-10-PCS; 2016-12-28)
PROC: 30233N1 Transfusion of Nonautologous Red Blood Cells into Peripheral Vein, Percutaneous Approach (ICD-10-PCS; 2016-12-29)
PROC: 30233L1 Transfusion of Nonautologous Fresh Plasma into Peripheral Vein, Percutaneous Approach (ICD-10-PCS; 2016-12-29)
PROC: 30233K1 Transfusion of Nonautologous Frozen Plasma into Peripheral Vein, Percutaneous Approach (ICD-10-PCS; 2016-12-29)
PROC: 0FT44ZZ Resection of Gallbladder, Percutaneous Endoscopic Approach (ICD-10-PCS; principal; 2016-12-29 09:00)
DX: A41.9 Sepsis, unspecified organism (principal); D65 Disseminated intravascular coagulation [defibrination syndrome]; K80.12 Calculus of gallbladder with acute and chronic cholecystitis without obstruction; I10 Essential (primary) hypertension; Z79.82 Long term (current) use of aspirin; Z79.899 Other long term (current) drug therapy; Z88.3 Allergy status to other anti-infective agents; Z88.5 Allergy status to narcotic agent; Z87.891 Personal history of nicotine dependence